=== PATIENT | male | born 1985 | race Caucasian/White ===

== ENCOUNTER 2021-12-27 18:17 | Emergency (ER) | payer OTHER ==
[~2021-12-27] VITALS: Ht 170.2 cm; Wt 79.1 kg
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
--- NOTE | 2021-12-27 18:30 | NUR ---
ISELA DOW, SEEN PT FOR EVAL.
[2021-12-27] MEDS ORDERED: ACETAMINOPHEN 325 MG TABLET ONE (18:48)
[2021-12-27] MEDS ORDERED: NAPROXEN 250 MG TABLET ONE (18:48)
[2021-12-27] MEDS: ACETAMINOPHEN 325 MG TABLET PO ONE (18:50)
[2021-12-27] MEDS: NAPROXEN 500 MG TABLET PO SCH (18:51)
--- NOTE | 2021-12-27 19:34 | NUR ---
Patient discharged to [facility] in stable condition. Written and verbal after care instructions given. Patient verbalizes understanding of instruction. PT ambulatory with a steady gait
[2021-12-27 19:38] VITALS: BP 112/50
== END 2021-12-27 19:39 ==
LOC: ER 18:19
DX: S16.1XXA Strain of muscle, fascia and tendon at neck level, initial encounter (principal); S20.212A Contusion of left front wall of thorax, initial encounter; S50.12XA Contusion of left forearm, initial encounter; S50.11XA Contusion of right forearm, initial encounter; S09.8XXA Other specified injuries of head, initial encounter; I10 Essential (primary) hypertension; Z60.2 Problems related to living alone; Y04.0XXA Assault by unarmed brawl or fight, initial encounter; Y93.89 Activity, other specified; Y92.89 Other specified places as the place of occurrence of the external cause; Y99.8 Other external cause status
CPT/HCPCS: 71045-TC; 72050-TC; 73090-TC